=== PATIENT | female | born 1950 | race Two or more races ===

== ENCOUNTER → 2020-03-11 | Outpatient (CLI) | payer BC ==
[~2020-03-11] MED LIST: CONTRAST GIVEN. MC PRN; IOHEXOL 240 MG/ML 50ML VIAL. PO ONE; IOHEXOL 300 MG/ML 100ML VIAL. IV ONE
[2020-03-11 15:10] LABS: CREATININE 0.9 mg/dL (0.6-1.0); GFR 61.7
--- NOTE | 2020-03-11 17:02 | RAD ---
EXAM: Pelvis CT with intravenous contrast. HISTORY: Groin mass. TECHNIQUE: Computed tomographic images of the pelvis were obtained following the administration of in travenous contrast. *One or more of the following individualized dose reduction techniques were utilized for this examina tion: 1. Automated exposure control. 2. Adjustment of the mA and/or kV according to patient size. 3. Use of iterative reconstruction technique. COMPARISON: None. FINDINGS: There is no evidence of bowel obstruction. There is no appendicitis. The urinary bladder, u terus and adnexal regions are unremarkable. The aorta is normal in caliber. There is no fracture, dislocation or subluxation. There is minimal bilateral hip osteoarthritis. Ther e is mild lumbar scoliosis. There is grade 1 anterolisthesis of L4 on L5. There is multilevel endplat e remodeling and facet arthropathy, predominantly at L2-L3. The combination of degenerative changes r esults in mild left foraminal and central canal stenosis at L3-L4, mild left foraminal and central ca nal stenosis at L4-L5, and mild to moderate bilateral foraminal stenosis at L5-S1. There is asymmetry in the size of the right greater than left tensor fascia marcia muscle bellies. No a ssociated mass is seen. The fascial planes are intact. There is a tiny fat-containing right inguinal hernia. There is no lymphadenopathy. IMPRESSION: 1. No acute finding or suspicious groin mass. 2. Multilevel degenerative change involving the lumbar spine, resulting in stenosis as described abov e. 3. Minimal lateral hip osteoarthritis. 4. Slight asymmetry in the size of the right greater than left tensor fascia marcia muscles. No associa nia mass is seen. 5. Tiny fat-containing right inguinal hernia. Electronically signed by: Carolee Valencia MD (03/11/2020 4:59 PM) [id number]
== END ==
LOC: CT 14:44
PROVIDERS: ATTEND Family Medicine
DX: R19.00 Intra-abdominal and pelvic swelling, mass and lump, unspecified site (principal); M16.10 Unilateral primary osteoarthritis, unspecified hip; M41.86 Other forms of scoliosis, lumbar region; M48.07 Spinal stenosis, lumbosacral region; M47.816 Spondylosis without myelopathy or radiculopathy, lumbar region
CPT/HCPCS: 36415; 72193; 82565; 84520; Q9966; Q9967